=== PATIENT | male | born 1940 | race Caucasian/White ===

== ENCOUNTER → 2017-05-31 | Outpatient (CLI) | payer MEDICARE ==
[~2017-05-31] MED LIST: ALBUTEROL2.5 MG/31 INH; ALDACTONE50 MG PO; AMOXICILLIN500 M1 PO; BIAXIN500 MG PO; BROVANA15 MCG/2 M INH; CALCIUM 500 +1 EAC5 PO; CARDIZEM CD180 MG PO; CLARITIN10 MG PO; COUMADIN 2 MG TA2 M1 PO; COUMADIN 3 MG TA3 M1 PO; COUMADIN7.5 MG PO; DIGOXIN125 MCG PO; DUONEB 2.5-0.5 M3 ML INH; EX-LAX15 MG PO; FISH OIL 1,001000 M2 PO; FLAGYL500 MG PO; FLOMAX0.4 MG PO; FUROSEMIDE 40 M40 MG PO; INCRUSE ELLI62.5 MCG IH; INCRUSE ELLI62.5 MCG INH; LANSOPRAZOLE30 MG PO; LASIX 40 MG TAB40 M2 PO; LEVAQUIN 750 M750 MG PO; MELATONIN3 MG PO; MINOCIN100 MG PO; MUCINEX TA600 MG/TA2 PO; MUCINEX600 MG PO; OMEPRAZOLE40 MG PO; PACERONE 200 M200 M1 PO; POTASSIUM20 PO; PREDNISONE 10 M10 MG PO; PREDNISONE10 MG PO; PREVACID15 MG PO; PRINIVIL20 MG PO; PROSCAR 5MG TABL5 MG PO; PULMICORT0.5 MG/22 INH; SORINE 80 MG TA80 M1 PO; SPIRONOLACTONE50 MG PO; TAMSULOSIN HCL0.4 MG PO; TRAMADOL 50 MG50 MG PO; ULTRAM 50MG TAB50 MG PO; UNICOMPLEX M TA1 TA1 PO; VITAMIN D1000 UNI1 PO; VITAMINC500 PO; XARELTO10 MG PO; XARELTO20 MG PO; ZAROXOLYN 5MG TA5 MG PO; ZOCOR20 MG PO
== END ==
LOC: M.RAD 16:21
DX: M19.042 Primary osteoarthritis, left hand (principal); M19.041 Primary osteoarthritis, right hand; J43.1 Panlobular emphysema; I50.9 Heart failure, unspecified; J96.90 Respiratory failure, unspecified, unspecified whether with hypoxia or hypercapnia; N17.9 Acute kidney failure, unspecified

== ENCOUNTER → 2017-06-08 | Outpatient (CLI) | payer MEDICARE | LOC: M.WC 01:47 | DX: I87.2 Venous insufficiency (chronic) (peripheral) (principal); L97.221 Non-pressure chronic ulcer of left calf limited to breakdown of skin; I89.0 Lymphedema, not elsewhere classified; I48.2 Chronic atrial fibrillation; I11.0 Hypertensive heart disease with heart failure; I50.22 Chronic systolic (congestive) heart failure; J44.9 Chronic obstructive pulmonary disease, unspecified; E78.2 Mixed hyperlipidemia; K21.9 Gastro-esophageal reflux disease without esophagitis; E66.9 Obesity, unspecified; Z68.30 Body mass index [BMI] 30.0-30.9, adult; F41.9 Anxiety disorder, unspecified; I25.10 Atherosclerotic heart disease of native coronary artery without angina pectoris; F32.9 Major depressive disorder, single episode, unspecified; M19.90 Unspecified osteoarthritis, unspecified site; Z87.891 Personal history of nicotine dependence; Z72.89 Other problems related to lifestyle ==

== ENCOUNTER → 2017-06-15 | Outpatient (CLI) | payer MEDICARE | LOC: M.WC 03:34 | DX: I87.2 Venous insufficiency (chronic) (peripheral) (principal); L97.221 Non-pressure chronic ulcer of left calf limited to breakdown of skin; I89.0 Lymphedema, not elsewhere classified; I48.2 Chronic atrial fibrillation; I11.0 Hypertensive heart disease with heart failure; I50.22 Chronic systolic (congestive) heart failure; J44.9 Chronic obstructive pulmonary disease, unspecified; E78.2 Mixed hyperlipidemia; K21.9 Gastro-esophageal reflux disease without esophagitis; E66.9 Obesity, unspecified; Z68.30 Body mass index [BMI] 30.0-30.9, adult; F41.9 Anxiety disorder, unspecified; I25.10 Atherosclerotic heart disease of native coronary artery without angina pectoris; F32.9 Major depressive disorder, single episode, unspecified; M19.90 Unspecified osteoarthritis, unspecified site; J43.1 Panlobular emphysema; Z87.891 Personal history of nicotine dependence; Z72.89 Other problems related to lifestyle ==

== ENCOUNTER 2017-06-26 23:17 | Emergency (ER) | payer MEDICARE ==
[~2017-06-26] VITALS: Ht 182.9 cm; Wt 102.5 kg
[~2017-06-26 23:17] MED LIST changes: -FLOMAX0.4 MG PO; -SORINE 80 MG TA80 M1 PO
[2017-06-26 23:35] LABS: HEMATOCRIT 37.5 % (42.0-52.0); HEMOGLOBIN 12.6 gm/dL (14.0-18.0); MCH 30.9 pg (26.0-34.0); MCHC 33.7 g/dL (28.0-37.0); MCV 91.7 fL (80.0-100.0); MPV 7.6 fl. (7.2-11.1); NUCLEATED RBCS 0 /100WBC; PLATELET COUNT* 203 thou/uL (150-400); RBC 4.09 mil/uL (4.50-6.00); RDW-CV 15.1 % (10.5-14.5); WBC 5.9 thou/uL (4.0-11.0)
[2017-06-26 23:46] LABS: ANION GAP 4 mmol/L (7-16); BUN 59 mg/dL (7-18); CALCIUM 9.4 mg/dL (8.5-10.1); CHLORIDE 95 mmol/L (98-107); CO2 35 mmol/L (21-32); CREATININE 3.3 mg/dL (0.6-1.3); GLUCOSE 101 mg/dL (70-99); POTASSIUM 4.5 mmol/L (3.5-5.1); SODIUM 134 mmol/L (136-145)
[2017-06-26 23:48] LABS: APTT 49.2 Seconds (25.0-31.3); INR 1.7; PROTIME 16.1 Seconds (9.20-11.50)
[2017-06-26 23:57] LABS: ALBUMIN 3.5 g/dL (3.4-5.0); ALKALINE PHOSPHATASE 53 U/L (46-116); NT-PRO BRAIN NAT PEPTIDE 84 pg/mL (<300); SGOT 17 U/L (15-37); SGPT 35 U/L (30-65); TOTAL BILIRUBIN 0.5 mg/dL (<0.1-1.0); TOTAL PROTEIN 6.9 g/dL (6.4-8.2); TROPONIN-I LEVEL <0.06 ng/mL (<0.06)
[2017-06-27 00:42] LABS: ABSOLUTE BASOPHILS 0.1 thou/uL (0.0-0.2); ABSOLUTE LYMPHOCYTES 0.6 thou/uL (0.8-5.3); ABSOLUTE MONOCYTES 0.6 thou/uL (0.0-1.2); ABSOLUTE NEUTROPHILS 4.6 thou/uL (1.6-8.1)
[2017-06-27 00:43] LABS: ANISOCYTOSIS 1+; GIANT PLATELETS RARE; PLATELET ESTIMATE ADEQUATE
[2017-06-27 01:45] VITALS: BP 115/72
== END 2017-06-27 01:45 | disposition home or self-care (01) ==
LOC: M.ERS 23:17
PROVIDERS: Family Medicine
DX: R04.0 Epistaxis (principal); I50.9 Heart failure, unspecified; I48.91 Unspecified atrial fibrillation; J44.9 Chronic obstructive pulmonary disease, unspecified; F10.20 Alcohol dependence, uncomplicated; Z88.8 Allergy status to other drugs, medicaments and biological substances; Z87.891 Personal history of nicotine dependence

== ENCOUNTER 2017-06-29 11:33 | Inpatient (IN) | payer MEDICARE ==
[2017-06-29] VITALS (8 sets, daily range): BP systolic 77–120; BP diastolic 42–94
[~2017-06-29] VITALS: Ht 182.9 cm; Wt 98.0 kg
[2017-06-29 12:09] LABS: HEMATOCRIT 41.8 % (42.0-52.0); HEMOGLOBIN 13.7 gm/dL (14.0-18.0); MCH 30.5 pg (26.0-34.0); MCHC 32.8 g/dL (28.0-37.0); MCV 92.8 fL (80.0-100.0); NUCLEATED RBCS 0 /100WBC; PLATELET COUNT* 258 thou/uL (150-400); WBC 7.5 thou/uL (4.0-11.0)
[2017-06-29 12:11] LABS: ANION GAP 11 mmol/L (7-16); BUN 66 mg/dL (7-18); CALCIUM 9.9 mg/dL (8.5-10.1); CHLORIDE 98 mmol/L (98-107); CO2 32 mmol/L (21-32); GLUCOSE 92 mg/dL (70-99); POTASSIUM 4.2 mmol/L (3.5-5.1); SODIUM 141 mmol/L (136-145)
[2017-06-29 12:13] LABS: URINE BLOOD NEGATIVE (Negative); URINE CLARITY CLEAR; URINE COLOR YELLOW; URINE GLUCOSE-RANDOM NEGATIVE (Negative); URINE KETONES TRACE (Negative); URINE LEUKOCYTES-REFLEX NEGATIVE (Negative); URINE NITRITE-REFLEX NEGATIVE (Negative); URINE PROTEIN NEGATIVE (Negative); URINE UROBILINOGEN 0.2 E.U./dl (0.2-1.0)
[2017-06-29 12:14] LABS: ICTOTEST (BILI CONFIRMATORY) Negative (Negative); URINE BILIRUBIN 1+ (Negative)
[2017-06-29 12:16] LABS: BE -0.3 mmol/L (-2 to +3); HCO3 25.2 mmol/L (22.0-26.0); PCO2 44.6 mmHg (35.0-45.0); PO2 66.1 mmHg (75.0-100.0)
[2017-06-29 12:22] LABS: ALBUMIN 3.7 g/dL (3.4-5.0); ALKALINE PHOSPHATASE 56 U/L (46-116); MAGNESIUM 2.7 mg/dL (1.8-2.4); NT-PRO BRAIN NAT PEPTIDE 573 pg/mL (<300); SGOT 25 U/L (15-37); SGPT 40 U/L (30-65); TOTAL BILIRUBIN 0.7 mg/dL (<0.1-1.0); TOTAL PROTEIN 7.1 g/dL (6.4-8.2); TROPONIN-I LEVEL <0.06 ng/mL (<0.06)
[2017-06-29 12:28] LABS: ABSOLUTE EOSINOPHILS 0.2 thou/uL (0.0-0.7); ABSOLUTE LYMPHOCYTES 0.6 thou/uL (0.8-5.3); ABSOLUTE MONOCYTES 0.8 thou/uL (0.0-1.2); ABSOLUTE NEUTROPHILS 5.9 thou/uL (1.6-8.1)
[2017-06-29 12:30] LABS: PLATELET ESTIMATE ADEQUATE
--- NOTE | 2017-06-29 16:01 | EKG ---
[place] [address] ELECTROCARDIOGRAM REPORT Name: CORRINAMARIO ALBERTOBIN Kovacs Room: [place] [address] ADM IN [facility].#: [id number] Admission: 06/29/17 Attend Phys: Red Roy MD Discharge: Date of : 42 Report #: [id number] THIS REPORT FOR: //name// [facility] ED Test Date: 2017-06-29 Test Time: 11:48:33 Pat Name: BIN FRANCIS Department: Room: [facility] Gender: M Barkeeper: : 1940 Requested By: Apurva Robledo Order Number: [id number] MD: Lebron Bruce Measurements Intervals [place] Rate: 183 P: AL: QRS: 38 QRSD: 91 T: 48 QT: 294 QTc: 513 Interpretive Statements Atrial fibrillation with rapid V-rate Borderline low voltage, extremity leads Compared to ECG 04/10/2017 15:42:36 ST (T wave) deviation no longer present Electronically Signed On 06-29-2017 16:01:33 FORESTER S[employer]URE by Lebron Bruce [email or web address] <ELECTRONICALLY SIGNED> By: Lebron Bruce MD, FACC 06/29/17 1601 1148 1148 Lebron Bruce MD, [facility] /EPI
[2017-06-30] VITALS (10 sets, daily range): BP systolic 98–161; BP diastolic 59–102
[2017-06-30 05:25] LABS: HEMATOCRIT 39.9 % (42.0-52.0); HEMOGLOBIN 13.4 gm/dL (14.0-18.0); MCHC 33.5 g/dL (28.0-37.0); MCV 92.5 fL (80.0-100.0); MPV 8.1 fl. (7.2-11.1); RBC 4.32 mil/uL (4.50-6.00); RDW-CV 15.2 % (10.5-14.5)
[2017-06-30 05:44] LABS: ALBUMIN 3.2 g/dL (3.4-5.0); CALCIUM 9.1 mg/dL (8.5-10.1); POTASSIUM 4.4 mmol/L (3.5-5.1); TOTAL BILIRUBIN 0.7 mg/dL (<0.1-1.0); TOTAL PROTEIN 6.4 g/dL (6.4-8.2)
--- NOTE | 2017-06-30 07:30 | CON ---
[address] [address] CONSULTATION Name: BIN FRANCIS Room: [address] IN .R.#: [id number] Admission: 06/29/17 Attend Phys: Red Roy MD Discharge: Date of : 42 Report #: [id number] THIS REPORT FOR: //name// CC: Red Summers TYPE OF REPORT: Cardiology consultation. INDICATION: AFib with RVR. HISTORY OF PRESENT ILLNESS: The patient is a 76-year-old gentleman who has significant COPD and apparent right heart failure, who was admitted to the hospital with mental status changes. In the Emergency Room, he was found to be hypoxic and hypercapnic. He was also in atrial fibrillation with a rapid ventricular response rate. He apparently has a history of chronic atrial fibrillation, which he is on rate control therapy for. He is chronically anticoagulated with Xarelto. CT of the head showed no acute abnormality. Laboratory evaluation showed acute renal failure. At the time of my interview, the patient remains in AFib with rapid ventricular response rate. His mental status has improved. He is now conversant. He denies chest pain. He is not having shortness of breath above his baseline. He is without other cardiac complaint at this time. PAST MEDICAL HISTORY: 1. Chronic atrial fibrillation. 2. Chronic diastolic and right heart failure. 3. COPD. 4. Renal failure, which appears acute. 5. History of upper GI bleed in the past. 6. Hypertension. HOME MEDICATIONS: Os-Benson 500 mg 1 tablet b.i.d., guaifenesin 400 mg q. 12 hours, potassium chloride 20 mEq daily, metolazone 5 mg daily, Brovana 15 mcg inhaled b.i.d., Pulmicort inhaler b.i.d., diltiazem 180 mg b.i.d., finasteride 5 mg daily, furosemide 40 mg daily, spironolactone 50 mg daily, loratadine 10 mg daily, Unicomplex-M vitamin one tablet daily, Xarelto 20 mg at dinnertime, Prevacid 15 mg daily, Incruse Ellipta inhaler daily, simvastatin 10 mg at bedtime, prednisone 40 mg daily, albuterol inhaler q. 4 hours p.r.n. and DuoNeb inhaler q.i.d. p.r.n. SOCIAL HISTORY: Quit smoking greater than one year ago. Alcohol use, occasional. FAMILY HISTORY: Noncontributory. PHYSICAL EXAMINATION: VITAL SIGNS: Blood pressure 101/75 and pulse is irregular in the 120[place] [address] CONSULTATION Name: BIN FRANCIS Room: [address] IN [facility].#: [id number] Admission: 06/29/17 Attend Phys: Red Roy MD Discharge: Date of : 42 Report #: [id number] GENERAL: This is an ill-appearing elderly gentleman who is not in distress. Mood and affect blunted. HEENT: Extraocular muscles intact. Mucous membranes are moist. NECK: Shows jugular venous distention. I do not appreciate bruit. CHEST: Reveals diminished breath sounds throughout without wheezes or rales. CARDIAC: Reveals a tachycardic rhythm that is irregularly irregular. ABDOMEN: Reveals a protuberant abdomen that is soft. Bowel sounds present. EXTREMITIES: Shows the left lower extremity to be wrapped with chronic venous skin changes noted. There is mild edema. Right lower extremity has trace edema and chronic skin changes noted. LABORATORY DATA: Labs are reviewed. Electrolytes within normal limits. BUN 66 and creatinine 3.0. Serum glucose 92. LFTs within normal limits. Initial troponin is less than 0.06. NT-pro-BNP is 573. White blood cell count is 7.5; hemoglobin is 13.7 and platelet count is 258,000. ABG shows a pH of 7.37, pCO2 of 45 and pO2 of 66 on 4 liters nasal cannula. RADIOLOGICAL DATA: CT head without contrast shows no acute abnormality. Chest x-ray shows previous left rib fracture with some chronic scarring. IMPRESSION AND RECOMMENDATIONS: 1. Atrial fibrillation with rapid ventricular response. We will increase diltiazem drip and give additional bolus. We will follow and continue titrating medications as needed. We would avoid digoxin with this patient with significant renal insufficiency at this time. We will continue Xarelto but reduce dose to 50 mg daily. 2. Yoocc-da-edwbwxp heart failure, likely diastolic in nature. At this point in time, with holding diuretics as he appears to have some acute renal insufficiency. We will need to evaluate inputs and outputs and daily boluses of diuretic as needed. We would also like to obtain an echocardiogram. 3. Hypertension. Blood pressure low normal presently. 4. Chronic obstructive pulmonary disease per primary physician. 5. Altered mental status, likely due to metabolic encephalopathy or hypoxia. The patient appears to be clearing at this time. <ELECTRONICALLY SIGNED> By: Lebron Bruce MD, [facility] 06/30/17 0730 1717 224Michaeeunice Bruce MD, FACC /nt
--- NOTE | 2017-06-30 16:53 | 2DMMODE ---
[place] [address] 2 D/M-MODE ECHOCARDIOGRAM Name: HANNYBethanieBIN Gertrudis Room: [address] IN [facility]#: [id number] Admission: 06/29/17 Attend Phys: Red Roy, Discharge: Date of : 42 Date of Service: 06/30/17 1652 Report #: [id number] THIS REPORT FOR: //name// APPROVED REPORT Study performed: 06/30/2017 14:04:15 EXAM: Comprehensive 2D, Doppler, and color-flow Echocardiogram Patient Location: In-Patient Room #: 229 Status: routine BSA: 2.28 HR: 69 bpm BP: 114/77 mmHg Rhythm: NSR Other Information Study Quality: Good Indications Dyspnea 2D Dimensions LVEF(%): 72.21 (>50%) IVSd: 14.94 (7-11mm) LVOT Diam: 23.25 (18-24mm) LVDd: 46.01 mm PWd: 10.63 (7-11mm) LVDs: 27.02 (25-40mm) Aortic Root: 38.16 mm Rosenberg's LVEF: 72.21 % Aortic Valve AoV Peak Wallace.: 1.45 m/s AO Peak Gr.: 8.46 mmHg LVOT Max P.30 mmHg AO Mean Gr.: 4.70 mmHg LVOT Mean P.13 mmHg LVOT Max V: 1.26 m/s AO V2 VTI: 20.80 cm LVOT Mean V: 0.82 m/s YUNIEL (VTI): 3.94 cm2 LVOT V1 VTI: 19.32 cm Mitral Valve MV Decel. Time: 227.08 ms MV PHT: 65.85 ms MVA (PHT): 3.34 cm[place] [address] 2 D/M-MODE ECHOCARDIOGRAM Name: BIN FRANCIS Room: [address] IN [facility].#: [id number] Admission: 06/29/17 Attend Phys: eRd Roy, Discharge: Date of : 42 Date of Service: 06/30/17 1652 Report #: [id number] PV Peak Wallace.: 1.27 m/s PV Peak Gr.: 6.42 mmHg Left Ventricle The left ventricle is normal size. There is normal LV segmental wall motion. There is normal left ventricular wall thickness. Left ventricular systolic function is normal. The left ventricular ejection fraction is within the normal range. LVEF is 65-70%. This study is not technically sufficient to allow evaluation of the LV diastolic function due to atrial fibrillation. Right Ventricle The right ventricle is normal size. The right ventricular systolic function is normal. Atria The left atrium size is normal. The right atrium size is normal. Aortic Valve Moderate aortic valve sclerosis. No aortic regurgitation is present. There is no aortic valvular stenosis. Mitral Valve The mitral valve is normal in structure. There is no mitral valve regurgitation noted. No evidence of mitral valve stenosis. Tricuspid Valve The tricuspid valve is normal in structure. Unable to assess PA pressure. Trace tricuspid regurgitation. Pulmonic Valve The pulmonary valve is normal in structure. There is no pulmonic valvular regurgitation. Great Vessels The aortic root is normal in size. IVC is normal in size and collapses with >50% inspiration Pericardium There is no pericardial effusion. <Conclusion> The left ventricle is normal size. There is normal left ventricular wall thickness. Left ventricular systolic function is normal. The left ventricular ejection [place] [address] 2 D/M-MODE ECHOCARDIOGRAM Name: BIN FRANCIS Room: [address]#: [id number] Admission: 06/29/17 Attend Phys: Red Roy, Discharge: Date of : 42 Date of Service: 06/30/17 1652 Report #: [id number] range. LVEF is 65-70%. The right ventricle is normal size. The left atrium size is normal. Moderate aortic valve sclerosis. No aortic regurgitation is present. There is no aortic valvular stenosis. The mitral valve is normal in structure. There is no mitral valve regurgitation noted. The tricuspid valve is normal in structure. IVC is normal in size and collapses with >50% inspiration There is no pericardial effusion. There is normal LV segmental wall motion. <ELECTRONICALLY SIGNED> By: Cheng Brooke MD, [facility] 06/30/171651 51 51 Cheng Brooke MD, FACC /INF
[2017-06-30] MEDS ORDERED: FLOMAX0.4 MG PO (17:38)
[2017-07-01] VITALS: BP 131/74
[2017-07-01 04:52] VITALS: BP 146/76
[2017-07-01 08:00] VITALS: BP 142/69
[2017-07-01 13:16] LABS: CALCIUM 9.7 mg/dL (8.5-10.1); CREATININE 1.5 mg/dL (0.6-1.3); POTASSIUM 4.2 mmol/L (3.5-5.1)
[2017-07-01 15:48] VITALS: BP 122/64
[2017-07-01 20:00] VITALS: BP 122/67
[2017-07-02] VITALS: BP 126/72
[2017-07-02 04:26] VITALS: BP 131/69
[2017-07-02 08:30] VITALS: BP 128/69
[2017-07-02 12:00] VITALS: BP 146/74
--- NOTE | 2017-07-02 12:26 | EKG ---
[place] [address] ELECTROCARDIOGRAM REPORT Name: BIN FRANCIS Room: [address] ADM IN M.R.#: [id number] Admission: 06/29/17 Attend Phys: Red Roy MD Discharge: Date of : 42 Report #: [id number] THIS REPORT FOR: //name// [facility] Test Date: 2017-07-02 Test Time: 04:51:20 Pat Name: BIN FRANCSI Department: Room: [address] Gender: M Grinder: GURU : 1940 Requested By: Lebron Bruce Order Number: [id number] Iraida MD: Lebron Bruce Measurements Intervals [place] Rate: 60 P: 56 AL: 155 QRS: 32 QRSD: 98 T: 58 QT: 530 QTc: 530 Interpretive Statements Sinus rhythm Low voltage, extremity leads Probable anteroseptal infarct, old Prolonged QT interval Compared to ECG 06/29/2017 11:48:33 Myocardial infarct finding now present Prolonged QT interval now present Atrial fibrillation no longer present Electronically Signed On 07-02-2017 12:26:20 DEPENDENCY CASE MANAGER by Lebron Bruce [email or web address] <ELECTRONICALLY SIGNED> By: Lebron Bruce MD, FAC 07/02/17 1226 0451 0451 Lebron Bruce MD, [facility] /EPI
[2017-07-02 16:00] VITALS: BP 125/74
[2017-07-02 21:00] VITALS: BP 152/85
[2017-07-03] VITALS: BP 156/94
[2017-07-03 03:50] VITALS: BP 138/72
[2017-07-03 05:41] LABS: CALCIUM 9.7 mg/dL (8.5-10.1); CREATININE 1.6 mg/dL (0.6-1.3); POTASSIUM 3.1 mmol/L (3.5-5.1)
[2017-07-03 08:00] VITALS: BP 152/85
--- NOTE | 2017-07-03 10:29 | EKG ---
[place] [address] ELECTROCARDIOGRAM REPORT Name: BIN FRANCIS Gertrudis Room: [address] ADM IN .R.#: [id number] Admission: 06/29/17 Attend Phys: Red Roy MD Discharge: Date of : 42 Report #: [id number] THIS REPORT FOR: //name// [facility] Test Date: 2017-07-03 Test Time: 07:41:19 Pat Name: BIN FRANCIS Department: Room: [address] Gender: M Guest Relations Representative: CEDRIC : 1940 Requested By: Lebron Bruce Order Number: [id number] Iraida MD: Jeffery Flores Measurements Intervals [place] Rate: 74 P: 58 UT: 156 QRS: 35 QRSD: 93 T: 62 QT: 417 QTc: 463 Interpretive Statements Sinus rhythm Low voltage, extremity leads Compared to ECG 07/02/2017 04:51:20 Myocardial infarct finding no longer present Prolonged QT interval no longer present Electronically Signed On 07-03-2017 10:29:00 MANAGER INVENTORY MANAGEMENT by Jeffery Flores [email or web address] <ELECTRONICALLY SIGNED> By: Jeffery Flores MD, [facility] 07/03/17 1029 0741 0741 Jeffery Flores MD, [facility] /EPI
[2017-07-03 12:00] VITALS: BP 133/86
[2017-07-03 16:58] VITALS: BP 165/99
[2017-07-03 20:00] VITALS: BP 148/93
[2017-07-04] VITALS (8 sets, daily range): BP systolic 126–172; BP diastolic 75–106
[2017-07-04 05:44] LABS: CALCIUM 10.1 mg/dL (8.5-10.1); CREATININE 1.4 mg/dL (0.6-1.3); POTASSIUM 4.1 mmol/L (3.5-5.1)
[2017-07-05] VITALS: BP 152/104
[2017-07-05 04:00] VITALS: BP 153/97
[2017-07-05 05:21] LABS: HEMOGLOBIN 14.7 gm/dL (14.0-18.0); MCH 30.8 pg (26.0-34.0); MCHC 33.5 g/dL (28.0-37.0); MCV 91.9 fL (80.0-100.0); MPV 8.2 fl. (7.2-11.1); RBC 4.79 mil/uL (4.50-6.00); RDW-CV 15.1 % (10.5-14.5); WBC 7.5 thou/uL (4.0-11.0)
[2017-07-05 05:30] LABS: CALCIUM 9.9 mg/dL (8.5-10.1); CREATININE 1.4 mg/dL (0.6-1.3); POTASSIUM 3.4 mmol/L (3.5-5.1)
[2017-07-05 08:35] VITALS: BP 118/81
[2017-07-05 11:43] VITALS: BP 129/78
[2017-07-05 18:08] VITALS: BP 142/90
[2017-07-06] VITALS: BP 113/69
[2017-07-06 04:20] VITALS: BP 116/83
[2017-07-06 08:25] VITALS: BP 127/80
[2017-07-06 11:21] VITALS: BP 117/71
[2017-07-06 12:33] VITALS: BP 117/71
[2017-07-06] MEDS ORDERED: SORINE 80 MG TA80 M1 PO (13:39)
[2017-07-06 13:40] VITALS: BP 117/71
--- NOTE | 2017-07-08 15:56 | CON ---
[address] [address] CONSULTATION Name: TITOBIN H Room: [address] IN .R.#: [id number] Admission: 06/29/17 Attend Phys: Red Roy MD Discharge: 07/06/17 Date of : 42 Report #: [id number] THIS REPORT FOR: //name// CC: Red Summers DATE OF SERVICE: 06/30/2017 HISTORY OF PRESENT ILLNESS: This is a 76-year-old male patient who was admitted with some confusion. It looks like the patient's confusion has become better. He had some hallucination. He did not realize that he was having hallucination. It came spontaneously and then became better spontaneously. The patient did not have any associated motor deficit with it. REVIEW OF SYSTEMS: Indicate he does have a wound, especially on his left leg. He does not know if any new medication was started. He is not actively hallucinating at the moment. He indicates he does have a history of COPD and congestive heart failure. He also has a history of atrial fibrillation in the past. He is short of breath, but he does not think his shortness of breath is much different than before. He is on chronic anticoagulation. He is on digoxin. He does have a history of hypertension. He does not believe there is any new eye, ENT, GI, , musculoskeletal, constitutional, dermatological, hematological, psychiatric, throat or allergic symptom associated with present symptomatology. He has a wound on the left leg, and he indicates that his feet turned blue. PAST MEDICAL HISTORY: Negative for any stroke. FAMILY HISTORY: Negative for early age stroke. SOCIAL HISTORY: Does have a prior history of smoking. PHYSICAL EXAMINATION: Indicate he is alert. He is responsive, is oriented. His speech is unremarkable. His fund of knowledge and memory is somewhat diminished, but is not markedly abnormal. Cranial nerve examination 2-12 is unremarkable. His pupil may be trace, symmetrical. His strength, sensation, reflexes and tone are symmetrical. Reflexes are diminished in generalized fashion, but he did not relax either. His position sense is intact. He does not have any cerebellar sign or papilledema. He is a reasonably well-developed individual who does not have any dysmorphic features of eyes, ears and face. His vision and hearing look adequate. He does appear to have some swelling in the lower extremities. He has discoloration of both feet. His pulses are difficult to feel, and he indicates he has known vascular insufficiency. His heart is regular, but he has been diagnosed with atrial fibrillation. This patient has moderate difficulty in respiration, [place] [address] CONSULTATION Name: HANNYBethanieBIN Gertrudis Room: [address] IN .R.#: [id number] Admission: 06/29/17 Attend Phys: Red Roy MD Discharge: 07/06/17 Date of : 42 Report #: [id number] he has rhonchi on both sides. His blood pressure is 106/77, respirations 20, pulse is 86, temperature 97.2. LABORATORY DATA: His white count is 7. His GFR is only 33. His blood sugar is 196. His free T4 is somewhat high at 2.36. CT scan was reviewed and that does demonstrate some atrophy. IMPRESSION: Hallucination. I suspect his hallucination is because of systemic problems. His T4 is somewhat high. He is on digoxin, and digoxin toxicity can produce hallucination, and we will exclude that, but most likely etiology is not neurological. However, he has so many vascular risk factors that it will be desirable to schedule SECTION PLOTTER OPERATOR etiology. I discussed that aspect with him, and he wants to proceed with the further workup. We will proceed with an MRI and an EEG in this patient. He will need evaluation and management of his systemic problems which is being done by yourself. RECOMMENDATIONS: 1. MRI. 2. EEG. 3. Vitamin B12. 4. Digoxin level. 5. Management of the systemic problem as per yourself. We will check on this workup and see if we have any other recommendation, and we will talk to you. Thank you very much for this referral. <ELECTRONICALLY SIGNED> By: Doroteo Jones MD 07/08/17 1556 1058 [id number] Jones MD /nt
== END 2017-07-06 15:12 | DRG 682 ==
LOC: M.ERS 11:33 → M.TBA-ER 14:04 → M.2W 14:04
PROVIDERS: Internal Medicine; Internal Medicine Cardiovascular Disease; Personal Emergency Response Attendant; ADMIT Internal Medicine
DX: N17.9 Acute kidney failure, unspecified (principal); I50.33 Acute on chronic diastolic (congestive) heart failure; G93.41 Metabolic encephalopathy; I48.2 Chronic atrial fibrillation; I13.0 Hypertensive heart and chronic kidney disease with heart failure and stage 1 through stage 4 chronic kidney disease, or unspecified chronic kidney disease; G24.9 Dystonia, unspecified; N18.9 Chronic kidney disease, unspecified; F03.90 Unspecified dementia, unspecified severity, without behavioral disturbance, psychotic disturbance, mood disturbance, and anxiety; I65.01 Occlusion and stenosis of right vertebral artery; J44.9 Chronic obstructive pulmonary disease, unspecified; Z79.899 Other long term (current) drug therapy; Z87.891 Personal history of nicotine dependence; Z88.8 Allergy status to other drugs, medicaments and biological substances; Z82.49 Family history of ischemic heart disease and other diseases of the circulatory system; Z79.01 Long term (current) use of anticoagulants